=== PATIENT | male | born 1955 | race Caucasian/White ===

== ENCOUNTER 2017-02-04 05:58 | Inpatient (IN) | payer BC ==
--- NOTE | 2017-01-29 20:01 | HP ---
HISTORY OF PRESENT ILLNESS: Mr. Muniz is a 61-year-old male that presents with numbness and reece n in his left greater than right C5 dermatome. He has had this pain since July 2006. He has also noticed that he has been off balance and on exam, he has demonstrated a heel to toe walk, but he is off balance. He has had weakness in the left upper extremity with extension of the wrist and flexio n of the bicep. He has +3 brachial reflexes and tricep reflexes. He has had positive Spurling's to the left. The pain is made worse with rotation and flexion of his neck and made somewhat better wi th lidocaine patches. The pain is also made somewhat better with heat, ice, massage, and TENS unit, but has not give permanent relief. He has not had any physical therapy and had [address] REENA injections wi th Dr. Kaur as well as stem cell injections. MRI and x-rays have been obtained at [facility] in [place]. REVIEW OF SYSTEMS: Ten-point review of systems was completed and it is otherwise negative unless st ated in the above HPI. PAST MEDICAL HISTORY: Hypertension, cardiac stents. PAST SURGICAL HISTORY: Laminectomy L4-L5 in 2015, cardiac catheterization in 2014, cardiac catheter ization in 2011, laminectomy T8 in 2009, right rotator cuff surgery in 2009, laminectomy L5-S1 in 05 01, cardiac ablation in 2007, cardiac catheterization in 2007, laminectomy L3-L4 in 2002 and a right knee surgery in 1995. HOSPITALIZATIONS: Surgeries for infection in 2014. FAMILY HISTORY: Father is , diagnosed with hypertension. Mother is , diagnosed wit h hypertension. Siblings are alive, diagnosed with diabetes. SOCIAL HISTORY: Patient is a nonsmoker, retired psychosocial rehabilitation counselor. He is and has 2 children. MEDICATIONS: 1. Zocor 10 mg tablet, 1 tablet in the evening orally once a day. 2. Pristiq 100 mg tablet extended release 24 hour, 1 tablet orally once a day. 3. Sotalol HCL 80 mg tablet, 1 tablet orally q.12 hours. 4. Baby aspirin. 5. Multivitamin 1 tablet daily. 6. Fentanyl HCL 40 mcg - ACT patch transdermal. 7. Hellier 10/325 mg tablet, 1 tablet as needed orally q.6 hours. 8. Zanaflex 4 mg tablet, 1 tablet as needed orally 3 times a day. ALLERGIES: BYSTOLIC. PHYSICAL EXAMINATION: HEENT: Normocephalic, atraumatic. Hearing intact. Moist mucous membranes. Trachea is midline. N o masses noted. EYES: Pupils are equal and reactive to light. Extraocular muscles are intact. Sclerae is white, n onicteric. PSYCHIATRIC: Normal mood and affect. CARDIOVASCULAR/CARDIOPULMONARY: No cyanosis or clubbing noted. Intact pedal pulses bilaterally. MUSCULOSKELETAL: Upper extremity, 3/5 strength in the left bicep to tricep and wrist extensor. Sarkar ited range of motion of the neck to the left and right. No sensory deficits bilaterally. RESPIRATORY: Even respirations, good effort in all lung liz, sounds clear with no wheezing or cr ackles. NEUROLOGIC: Stable. Cranial nerves II through XII were grossly intact. Speech is fluent. He answ ers my questions appropriately with gait and he is off balance with gait and station. ASSESSMENT: 1. Cervical myelopathy with radiculopathy. 2. Neck pain. PLAN: Dr. Bustamante offered an ACDF from the anterior and posterior C4-C7, anterior ACDF C4 through C7 and posterior laminectomy and fusion C4 through C7. This will prevent his neurologic symptoms i n the upper extremities and lower extremities from getting worse. We reviewed the risks, benefits, and possible complications of surgery. Mr. Muniz fully understands the risk and is willing to p roceed with the surgery.
[2017-02-04] MEDS ORDERED: Bupivacaine HCl 0.5%/Epinephrine 1:200,000/PF 30 ml Vial ONE (06:19)
[2017-02-04] MEDS ORDERED: Bacitracin Zinc Ointment 30 gm TUBE ONE (06:19)
[2017-02-04] MEDS ORDERED: Thrombin 5000 UNITS/5 ML VIAL ONE ×2 (06:19→06:20)
[2017-02-04] MEDS ORDERED: Sodium Chloride 0.9% 20 ML ONE (06:19)
[2017-02-04 06:41] LABS: Hematocrit 39.8 % (42.0-52.0); Mean Platelet Volume 10.4 fL (7.4-10.4); Red Blood Cell (RBC) Count 4.26 mill/uL (4.70-6.10); White Blood Cell (WBC) Count 6.1 thou/uL (4.8-10.8)
[2017-02-04] MEDS ORDERED: Midazolam HCl 2 mg/2 ml Vial ONE ×2 (06:41→06:52)
[2017-02-04] MEDS ORDERED: Fentanyl 100 MCG/2 ML VIAL ONE ×8 (06:42→16:30)
[2017-02-04 06:50] LABS: PTT 25.2 SEC (22.9-36.1); Prothrombin Time 12.6 SEC (12.0-14.7)
[2017-02-04] MEDS ORDERED: Ondansetron HCl/PF 4 MG/2 ML Vial ONE (07:22)
[2017-02-04] MEDS ORDERED: Lidocaine 2% PF 10 ML AMP (For Epidural Use) ONE (07:22)
[2017-02-04] MEDS ORDERED: Vecuronium 10 MG VIAL ONE (07:22)
[2017-02-04] MEDS ORDERED: Propofol 200 MG/20 ML VIAL ONE (07:22)
[2017-02-04] MEDS ORDERED: PHENYLEPHRINE-NS 100 MCG/ML 10 ML SYRINGE ONE (07:22)
[2017-02-04] MEDS ORDERED: Glycopyrrolate 0.2 MG/ML 5 ML SYRINGE ONE (07:22)
[2017-02-04] MEDS ORDERED: Dexamethasone 20 MG/5 ML VIAL ONE (07:22)
[2017-02-04] MEDS ORDERED: Rocuronium Bromide 50 MG/5 ML VIAL ONE ×2 (10:29→13:30)
--- NOTE | 2017-02-04 13:08 | OP ---
DATE OF PROCEDURE: 02/04/2017 SURGEON: Andrew Bustamante M.D. PARTITION SETTER: Ghassan Erazo PA-C PREOPERATIVE INDICATION: Prevent neurological deterioration. 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 OPERATIVE PROCEDURES: Anterior cervical diskectomy, intravertebral arthrodesis, placement of interv ertebral biomechanical device, anterior cervical plating C4-5, C5-6, and C6-7, local morselized auto graft, morselized allograft and operative microscope (separate surgical procedure under same anesthe scottie dictated elsewhere). PREOPERATIVE MEDICATION: Ancef 2 grams IV. DRAIN NUMBER: Zero. DRAIN TYPE: None. OPERATIVE DICTATION: The patient was brought to the operating room. General endotracheal anesthesi a was induced. Keeping the neck in normal anatomic alignment, the patient was positioned supine wit h his head supported by gel-filled donut shaped head rest. A lateral fluoro radiograph was used to plan our incision. The right side of the neck was sterilely prepped and draped. We opened with a 1 0 blade knife and controlled bleeding with bipolar cautery. We dissected sharply to the platysma an d cut this muscle in line with our incision. We continued our dissection medial to the sternocleido mastoid and lateral to the trachea and esophagus all the way down the prevertebral space. We placed a marker at C4-C5 and took a lateral fluoro radiograph to confirm the levels upon which we were ope rating. We then elevated the longus colli muscles off the anterior surface of C4, C5, C6, and C7. We placed a self-retaining retractor beneath the longus colli muscles and distraction pins were plac ed at C5 and C7. We distracted across both of the intervening interspaces. We incised the interspa gerri with a 15 blade knife and removed disk contents using curettes and rongeurs. The operative micr oscope was brought into the field. Under microscopic magnification and using microsurgical techniques, we removed the remainder of the intervertebral disk. We removed the posterior longitudinal ligament. We visualized the dura and we decompressed from one neural foramen all the way to the other across the interspace at C5-6 and aga in at C6-7. We then turned our attention to arthrodesis. We prepared the endplates for grafting using angled curets to remove the cartilaginous cap. We denita ured the height of the both interspaces to 6 mm. Two separate 6 mm PEEK graft were brought into the field. Osteophytes removed during our decompression were carefully cleaned of their soft tissue at tachment morselized and added to demineralized bone matrix as our fusion substrate. The substrate w as placed into the PEEK graft and the PEEK grafts were advanced into their respective interspaces un jaxson radiographic guidance to the appropriate depth. We then removed the distraction pin from C7. W e placed our lateral retractors at C4-5 and placed a distraction pin at C4. We then distracted acro ss the C4-5 interspace. In a similar fashion to what we had done below, we decompressed at C4-5. We incised the interspace with a 15 blade knife and removed disk contents using curettes and rongeur s. We continued on the operating microscope to remove the remainder of the intervertebral disk. We removed the posterior longitudinal ligament and visualize the dura. We decompressed by removing os teophytes and posterior longitudinal ligament across the entire interspace from one nerve root all t he way to the other nerve roots at the C4-C5 interspace. We then prepared the endplates for graftin g and using angled curet and measured the height of the interspace to 7 mm. A 7 mm PEEK graft was b rought into the field and loaded with demineralized bone matrix and morselized autograft and advance d into the interspaces under radiographic guidance to the appropriate depth. We removed both distra ction pins and took operating microscope out of the field. Prepared the anterior surface of the vertebral bodies to accept anterior cervical plate. A 48 mm an terior cervical plate was brought into the field. We drilled airplane pilot photogrammetry holes through the plate into the vertebral bodies from C4-C7. We affixed the plate using 14 mm screws. Fixed angle screws were use d at C7 and variable angle screws at C4, C5, and C6. We engaged the locking mechanism over each of the screws. AP and lateral fluoro radiographs confirmed adequate position of instrumentation. We i rrigated copiously with bacitracin irrigation. Hemostasis was excellent. We closed the wound in an atomic layers and we applied a sterile dressing. This was a clean case and no contamination. The p osterior decompression fusion is dictated under separate heading under the same anesthetic.
[2017-02-04] MEDS ORDERED: Promethazine HCl 25 MG/ML VIAL SLOW IVP PRN (15:16)
[2017-02-04] MEDS ORDERED: HYDROmorphone 2 MG/ML VIAL SLOW IVP PRN (15:16)
[2017-02-04] MEDS ORDERED: Ondansetron HCl/PF 4 MG/2 ML Vial IVP PRN ×2 (15:16→15:31)
[2017-02-04] MEDS ORDERED: Meperidine HCl/PF 25 MG/ML VIAL SLOW IVP PRN (15:16)
[2017-02-04] MEDS ORDERED: Acetaminophen/Codeine 30-300mg Tablet PO PRN ×2 (15:31)
[2017-02-04] MEDS ORDERED: Morphine Sulfate 2 MG/ML SYRINGE SLOW IVP PRN (15:31)
[2017-02-04] MEDS ORDERED: Milk Of Magnesia 30 ML UDCUP PO PRN (15:31)
[2017-02-04] MEDS: Sodium Chloride 0.9% 1,000 ML IV SCH (15:45)
--- NOTE | 2017-02-04 19:01 | OP ---
DATE OF PROCEDURE: 02/04/2017 SURGEON: Andrew Bustamante M.D. DISPENSER OPERATOR: Ghassan Erazo PA-C. PREOPERATIVE INDICATION: Prevent neurological deterioration. 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 OPERATIVE PROCEDURE: Decompressive laminectomy; foraminotomy at C4, C5, C6, and C7; posterolateral arthrodesis C4-5, C5-6, and C6-7; posterior cervical instrumentation C4-C7; local morselized autogra ft, morselized allograft (second surgical procedure under same anesthetic as part one elsewhere). PREOPERATIVE MEDICATION: Ancef 2 grams IV. DRAIN NUMBER: One. DRAIN TYPE: 10-[place]. OPERATIVE DICTATION: The patient was under general anesthesia from his first surgical procedure. M [employer] paco headholder was placed in the patient's head and he was rolled carefully down the seco nd operative table with his chest and hips supported by gel-filled chest rolls. The head was immobi lized with the Spencer attachments. Hair was removed from the back of the head and neck. A latera l fluoro radiograph was used to plan our incision. The posterior cervical skin was sterilely preppe d and draped. We opened our midline incision with a 10-blade knife and controlled bleeding with bip olar cautery. We used monopolar cautery to dissect through the ligamentum nuchae. We stayed in the midline and dissected all the way down to the spinous processes from C4-C7. A lateral fluoro radio graph confirmed the levels upon which we were operating. We then elevated the paraspinal muscles of f the spinous process and lamina of C4, C5, C6, and C7. Self-retaining retractors were placed. We then used a Steely and Kerrison rongeurs to fashion a laminectomy from the bottom of C6 to the top o f C4. We then changed direction and removed the superior 10 mm of the lamina C7 as well. We widene d our laminectomy defect until we were around the lateral aspect of the thecal sac bilaterally. We identified the foramina and performed small foraminotomies to ensure the exiting nerve roots were we ll decompressed. We then turned our attention to arthrodesis. Using bony anatomic landmarks and a lateral fluoro radiograph as a guide, we chose entry points for lateral mass screws. With the high-speed jose angel, we decorticated bone to start our entry points. We then used a 12 mm drill and drilled out screw trajectories. These were completely encased in bone. We placed 12 mm lateral mass screws at C4, C5, C6, and C7 bilaterally. We brought a margoth template i nto the screw heads and measured rods for both sides. We cut these rods and bent them to fit her sc rew heads. We tightened caps over the rods and using a easbwl-vltoloo-gssxwf mechanism, we ensured adequate tightness. We irrigated copiously with bacitracin irrigation. We then brought a high-spee d drill into the field and decorticated the lateral aspect of each of the lateral masses from C4-C7 and over the decorticated bone, we left demineralized bone matrix and morselized autograft as our po sterolateral fusion substrate. The morselized autograft was obtained from the laminectomy bone, [facility] ch was carefully cleaned of all soft tissue and then morselized into demineralized bone matrix to fo rm our fusion substrate. We tunneled the drain inferiorly through a separate stab incision. We inf used some local anesthetic in the paraspinal muscles. We added vancomycin powder in the wound. We closed the wound in anatomic layers over a drain. This was a clean case and no contamination.
[2017-02-04 20:09] VITALS: BMI 27.3
[2017-02-04] MEDS: Sotalol HCl 80 MG TAB PO SCH (21:01)
[2017-02-04] MEDS: Simvastatin 5 MG TAB PO SCH (21:01)
[2017-02-04] MEDS: Cyclobenzaprine 10 MG TAB PO PRN (23:18)
[2017-02-05] MEDS: HYDROcodone/Acetaminophen 10/325 mg Tablet PO PRN ×3 (00:22→10:53)
[2017-02-05] MEDS: Sodium Chloride 0.9% 1,000 ML IV SCH ×2 (05:08→19:43)
[2017-02-05] MEDS: Cyclobenzaprine 10 MG TAB PO PRN ×3 (05:11→19:20)
--- NOTE | 2017-02-05 07:44 | PRG ---
DATE OF SERVICE: 02/05/2017 Mr. Muniz is 1 day out from an anterior and posterior decompression and fusion of the cervical s pine for unstable spondylolisthesis, cord compression myelopathy. He complains of some tightness in his neck overnight, but no radiating pains in his arms. His hands subjectively feel better than th nicholas did before surgery. I do not see any fevers recorded overnight and his vital signs look stable to me. His neurological function this morning is stable from preoperative function and the drain has put out about 50 mL. My plan for today is to mobilize Mr. Muniz. Once he is safe with activities of daily living he can be discharged. If he needs extra help with physical therapy then a brief stay in inpatient reha bilitation may be worthwhile. The drain can come out when it is averaging less than 5 mL an hour.
--- NOTE | 2017-02-05 07:55 | PRG ---
DATE OF SERVICE: 02/05/2017 Mr. Muniz is a 61-year-old male who I saw in his room this morning. He is status post an anteri or cervical and posterior cervical fusion C4 through C7. This morning, he does not have any pain in his upper extremities; however, he does complain of some muscle spasms in his upper back. Today he can work with physical therapy and ambulate as much as possible. The LEONIDES drain overnight put out 50 mL so that can be discontinued. If he is able to do everything that he would do at home here at [facility], he can be discharged either later today, but most likely tomorrow. If there are any further questions, please feel free to contact Neurosurgery.
[2017-02-05] MEDS: Valsartan 80 MG TAB PO SCH (08:20)
[2017-02-05] MEDS: Sotalol HCl 80 MG TAB PO SCH ×2 (08:20→20:39)
[2017-02-05] MEDS ORDERED: HYDROcodone/Acetaminophen 10/325 mg Tablet PO PRN ×2 (13:47)
[2017-02-05] MEDS ORDERED: Promethazine HCl 25 MG/ML VIAL IM PRN (17:37)
[2017-02-05] MEDS ORDERED: diphenhydrAMINE HCl 25 MG CAP PO PRN (17:37)
[2017-02-05] MEDS ORDERED: Ondansetron HCl/PF 4 MG/2 ML Vial IVP PRN (17:37)
[2017-02-05] MEDS ORDERED: Naloxone HCl 0.4 mg/ml Vial IV PRN (17:37)
[2017-02-05] MEDS ORDERED: diphenhydrAMINE HCl 50 MG/ML 1 ML VIAL IVP PRN (17:37)
[2017-02-05] MEDS ORDERED: Fentanyl 5000 MCG/250 ML CADD IVPB PRN (17:37)
[2017-02-05] MEDS ORDERED: diphenhydrAMINE HCl 50 MG/ML 1 ML VIAL IM PRN (17:37)
[2017-02-05] MEDS ORDERED: Communication Order-Pharmacy FS SCH (17:45)
[2017-02-05] MEDS: Simvastatin 5 MG TAB PO SCH (20:39)
[2017-02-06] MEDS: Cyclobenzaprine 10 MG TAB PO PRN ×3 (02:09→21:29)
[2017-02-06] MEDS: Zolpidem Tartrate 5 MG TAB PO PRN (02:09)
--- NOTE | 2017-02-06 06:56 | PRG ---
DATE OF SERVICE: 02/06/2017 Mr. Daniel Muniz is 2 days out from an anterior posterior decompression and fusion of the cervical spine. He does not notice any change in his hands. He has good motor function. He has not checke d his finger dexterity that was a problem before surgery. He was able to walk yesterday, he felt th at his balance was normal. He went to the bathroom and he had no urinary retention. On examination, Mr. Muniz still has a dressing on his posterior cervical incision, it seems to b e healing well. I do not find any new neurological deficits. Mr. Muniz has issues with pain control that need to be addressed before discharge. I would like to get him into a state of pain control that is more tenable as he is not apt to participate in the rapy if he is hurting this much. None of the pain is radicular, it is all muscular in the posterior cervical area and will take some time to rian, it seems.
[2017-02-06] MEDS: Sodium Chloride 0.9% 1,000 ML IV SCH ×2 (07:59→21:29)
[2017-02-06] MEDS: Valsartan 80 MG TAB PO SCH (08:33)
[2017-02-06] MEDS: Sotalol HCl 80 MG TAB PO SCH ×2 (08:33→21:28)
[2017-02-06] MEDS ORDERED: HYDROmorphone 10 mg/100 ml CADD IV PRN (12:12)
[2017-02-06] MEDS: HYDROmorphone 10 mg/100 ml CADD IV PRN (13:34)
[2017-02-06] MEDS ORDERED: Gabapentin 300 MG CAP PO SCH (15:00)
[2017-02-06] MEDS: DESVENLAFAXINE 100 MG PO SCH (15:09)
[2017-02-06] MEDS: Gabapentin 300 MG CAP PO SCH ×2 (15:36→21:28)
[2017-02-06] MEDS: Simvastatin 5 MG TAB PO SCH (21:28)
[2017-02-07] MEDS: Zolpidem Tartrate 5 MG TAB PO PRN ×2 (03:09→20:36)
[2017-02-07] MEDS: HYDROmorphone 10 mg/100 ml CADD IV PRN ×2 (04:39→23:35)
--- NOTE | 2017-02-07 07:10 | PRG ---
DATE OF SERVICE: 02/07/2017 Mr. Muniz is 3 days from anterior to posterior cervical decompression with fusion. He has had p ain control issues. Because of pain control issues he has been out of bed only twice yesterday and walking in the halls. He has been in and out of the bathroom, however. I do not find any new neuro logical deficit. He is quite concerned about his pain. My plan for Mr. Muniz is to start to transition to medications for pain control that we could us e at home, continue therapy and wait for him to be safe for activities of daily living before discha rge. He will need to be getting in and out of bed on his own.
--- NOTE | 2017-02-07 07:23 | PRG ---
DATE OF SERVICE: 02/07/2017 Mr. Muniz is 3 days out from an anterior cervical diskectomy and fusion of the cervical spine an d posterior fusion. This morning he has good strength in his upper and lower extremities bilaterall y. He has been having issues with pain control over the last 2 days and Anesthesia has been involve d with that. His vital signs overnight have been stable. Yesterday, he was able to ambulate with p hysical therapy approximately 80 feet. This morning he is tired, but responsive to my questions and responds appropriately. His pulses are equal and symmetric in the upper and lower extremities bila terally. There are no new neurologic deficits on exam and he has no radicular pain. Most of the pa in that he is experiencing is in the upper back and posterior neck which will take some time to reso lve. We want to make sure that his pain can be handled with oral pain medication before he is disch arged from the hospital. If you have any further questions, please feel free to contact Neurosurgery.
[2017-02-07] MEDS: Valsartan 80 MG TAB PO SCH (10:03)
[2017-02-07] MEDS: DESVENLAFAXINE 100 MG PO SCH (10:03)
[2017-02-07] MEDS: Sotalol HCl 80 MG TAB PO SCH ×2 (10:03→20:35)
[2017-02-07] MEDS: Gabapentin 300 MG CAP PO SCH ×3 (10:04→20:35)
[2017-02-07] MEDS: Sodium Chloride 0.9% 1,000 ML IV SCH ×2 (11:33→19:40)
[2017-02-07] MEDS: Cyclobenzaprine 10 MG TAB PO PRN ×2 (16:08→23:41)
[2017-02-07] MEDS: Simvastatin 5 MG TAB PO SCH (20:35)
[2017-02-08] MEDS: Gabapentin 300 MG CAP PO SCH ×3 (08:22→21:35)
[2017-02-08] MEDS: DESVENLAFAXINE 100 MG PO SCH (08:22)
[2017-02-08] MEDS: Sotalol HCl 80 MG TAB PO SCH ×2 (08:23→21:35)
[2017-02-08] MEDS: Valsartan 80 MG TAB PO SCH (08:24)
--- NOTE | 2017-02-08 12:40 | PRG ---
DATE OF SERVICE: 02/08/2017 Mr. Muniz is 4 days out from anterior-posterior decompression and fusion of the cervical spine f or a cervical spondylitic myelopathy. Mr. Muniz is still complaining of significant muscle spas m. The location of the spasm is very specific between the top of the right scapula and the spine. He feels if somebody could press there or use manual maneuvers to loosen the muscle, he could feel s ignificantly better. He is still on the AUTOMOTIVE GENERAL SALES MANAGER and fentanyl. He came in on the fentanyl patch. Mr. Muniz's neurological function is normal. My plan today is to check over his muscle spasm medication and switch it to a different medicine as it is not working terribly well. I will ask physical therapy to use manual maneuvers to help loosen his musculature and see if we can get him out of the hospital at some point this weekend.
--- NOTE | 2017-02-08 13:28 | PRG ---
DATE OF SERVICE: 02/08/2017 Mr. Flavio morrison is status post from an anterior cervical diskectomy and fusion and posterior carr inectomy and fusion. He seems to be doing better overnight. This morning, he complains of severe m uscle spasms, mainly on the right side of his neck. He is currently taking Flexeril for muscle rela xant and we can switch to tizanidine as that is what he has previously taken. His vital signs have been stable overnight and there have been no acute events. His neurologic status has been unchanged . His incisions are clean, dry, and intact, well approximated with opal on the posterior cervica l spine and anterior incision on the right side of his neck has no erythema and is well-approximated and is closed with subcu stitches. We can start to wash the incisions with soap and water or Hibic lens daily. He can work with physical therapy today and we can continue pain management. If possib le, we would like to start weaning off the SIGHTER pump to oral medications so that we can look to disch arge in the near future. If there are any further questions, please feel free to contact Neurosurge edinson.
[2017-02-08] MEDS: Sodium Chloride 0.9% 1,000 ML IV SCH (14:41)
[2017-02-08] MEDS: tiZANidine HCl 4 MG TAB PO SCH ×2 (15:01→21:35)
[2017-02-08] MEDS: Simvastatin 5 MG TAB PO SCH (21:34)
[2017-02-09] MEDS: HYDROmorphone 10 mg/100 ml CADD IV PRN (04:33)
[2017-02-09] MEDS: Sodium Chloride 0.9% 1,000 ML IV SCH ×2 (05:14→15:08)
[2017-02-09] MEDS: Gabapentin 300 MG CAP PO SCH ×3 (09:09→21:10)
[2017-02-09] MEDS: Sotalol HCl 80 MG TAB PO SCH ×2 (09:10→21:10)
[2017-02-09] MEDS: DESVENLAFAXINE 100 MG PO SCH (09:10)
[2017-02-09] MEDS: tiZANidine HCl 4 MG TAB PO SCH ×3 (09:10→21:11)
[2017-02-09] MEDS: Valsartan 80 MG TAB PO SCH (09:10)
--- NOTE | 2017-02-09 09:23 | PRG ---
DATE OF SERVICE: 02/09/2017 NEUROSURGERY PROGRESS NOTE SUBJECTIVE: Mr. Muniz got some manual massage of the trapezius/rhomboid on the right side. He said this helped significantly, but was too short and temporary. Pain returned and he has not been out of bed yesterday. In fact, it has been a few days. He tells me he is rolling from side to side and doing leg exercises, but I prefer him to be up and walking. I have encouraged Mr. Muniz to move around more today and hopefully transition from IV analgesics to p.o. I have to start making progress to these.
--- NOTE | 2017-02-09 11:03 | PRG ---
DATE OF SERVICE: 02/09/2017 SUBJECTIVE: Mr. Muniz is a 61-year-old male, I saw in his room this morning. He says he is fee ling much better; however, he is still having the muscle cramps in the right-sided neck. He said th e physical therapy was in yesterday to work with him and gave him a short massage in the shoulders w hich seemed to help significantly. However, they were concerned about him ambulating. He did not t hink that this was the main issue and that he would like his benefit from his back being out with mo re beneficial from physical therapy. Yesterday, he was able to stand up and walk. His vital signs have been stable overnight. There are no new neurologic deficits on exam. He can continue to work with physical therapy today. I encouraged physical therapy to massage his right-sided upper cervica l spine. If there are any further questions, please feel free to contact Neurosurgery.
[2017-02-09] MEDS: Simvastatin 5 MG TAB PO SCH (21:10)
[2017-02-10] MEDS: Sodium Chloride 0.9% 1,000 ML IV SCH (06:29)
[2017-02-10 08:13] VITALS: TEMP 98.2
[2017-02-10] MEDS ORDERED: oxyCODONE/Acetaminophen 5 mg/325 mg Tablet PO PRN (08:16)
--- NOTE | 2017-02-10 08:36 | PRG ---
DATE OF SRVICE: 02/10/2017 SUBJECTIVE: Mr. Muniz is 6 days out from an anterior to posterior decompression and fusion of t he cervical spine for unstable spondylolisthesis and cervical spondylitic myelopathy. Mr. Muniz had difficulty with pain control during his hospitalization, but since yesterday when he got a therapeutic massage of the rhomboids and trapezius, he is much better. He has required muc h less pain medication, he has not use his DESIGN PRINTER BALLOON since 3:00 p.m. yesterday and he has been off pain me dicines. He is ready to go home. We will make arrangements for him to be seen with his pain management doctor in [place]. We will offer him muscle relaxants and analgesic prescriptions for discharge and he wants to go home today. We will make that happen.
[2017-02-10] MEDS: Valsartan 80 MG TAB PO SCH (09:31)
[2017-02-10] MEDS: tiZANidine HCl 4 MG TAB PO SCH (09:32)
[2017-02-10] MEDS: Sotalol HCl 80 MG TAB PO SCH (09:32)
[2017-02-10] MEDS: Gabapentin 300 MG CAP PO SCH (09:32)
[2017-02-10] MEDS: DESVENLAFAXINE 100 MG PO SCH (09:36)
[2017-02-10 21:06] VITALS: BP 96/58
--- NOTE | 2017-02-12 09:01 | DIS ---
DATE OF ADMISSION: 02/04/2017 DATE OF DISCHARGE: 02/10/2017 Mr. Muniz is a 61-year-old male. 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 DISCHARGE CONDITION: The patient is stable. He is ambulating. He has good strength in all extremi ties. CONSULTATIONS: Physical therapy, [facility]. PROCEDURES: 1. Anterior cervical diskectomy and intervertebral arthrodesis placement of intervertebral biomecha nical device, anterior cervical plating at C4-C5, C5-C6, and C6-C7. 2. Localized morselized autograft, morselized allograft, and operative microscope separate surgical procedure under same anesthesia dicated elsewhere. 3. Decompressive laminectomy, foraminotomy at C4-C5-C6-C7, posterolateral arthrodesis at C4 through C7, posterior cervical instrumentation at C4 through C7, local morselized autograft, morselized all ograft, second surgical procedure under same anesthestic as part one elsewhere. HISTORY OF PRESENT ILLNESS: Mr. Muniz is a 61-year-old male who presents with numbness and pain in his left greater than right C5 dermatome. He has had pain since 07/2016. He has also noticed t hat he has been off balance on exam, demonstrated a heel to toe walk. He had weakness in the left u pper extremity in the left triceps and biceps. He had positive Spurling's to the left and the pain is made worse with rotation and flexion of the neck made somewhat better with lidocaine patches. He has had several REENA injections with Dr. Kaur and stem cell injections, and this does not give p ermanent relief and he has opting for a surgery for help his pain. HOSPITAL COURSE: Mr. Muniz had no acute events. He had trouble controlling his pain in the fir st 2 days out of surgery, so [facility] was consulted and a LAUNDRY AID pump was placed which h elped to control his pain. He is able to get up and ambulate with physical therapy. Two days where he had cramping in the uppe r right trapezius muscle in which physical therapy massaged his trapezius muscles and the cramping w ent away. All images were taken intraoperatively. DISCHARGE PHYSICAL EXAMINATION: HEENT: Normocephalic, atraumatic. Hearing intact. Moist mucous membranes. Trachea is midline. E yes: Pupils are equal and reactive to light. Extraocular muscles are intact. Sclerae are white, n onicteric. NECK: The patient has incisions on the anterior right cervical spine and posterior midline cervical spine. Both incisions are nonerythematous, clean, dry and intact. RESPIRATORY: The patient has bilateral symmetric chest rise, appears to be no shortness breath. CARDIOVASCULAR: The patient has regular rate and rhythm, normal S1, S2 heart sounds. Appears to rhodes ve no distal cyanosis or clubbing. MUSCULOSKELETAL: The patient has 4/5 strength in bilateral upper extremities, 5/5 strength in bilat eral lower extremities in all muscle groups. Pulses are +2 and equal and symmetric in the brachial and radial pulses in the upper extremities bilaterally and posterior tibial pulses in the lower extr emities bilaterally. NEUROLOGIC: Cranial nerves II through XII are grossly intact. Speech is fluent. He answers questi ons appropriately. Patient's weight is 170 pounds. He is 5 feet, 6 inches. ACTIVITY ON DISCHARGE: The patient can have regular activity with restrictions of lifting more than 15 pounds. The patient is to wear a cervical C-spine brace for 4 to 8 weeks. DIET: The patient can have a regular diet on discharge. MEDICATIONS: Home medications include: 1. Fentanyl patch 1 on dermis. 2. Tizanidine 4 mg p.o. t.i.d. 3. Sotalol/HCL 80 mg p.o. b.i.d. 4. [place] 10/325 tablet 1 each p.o. p.r.n. 5. Simvastatin 10 mg p.o. at bedtime. 6. Khedezla 100 mg p.o. daily. 7. Amlodipine/valsartan 1 tablet p.o. daily
== END 2017-02-10 12:09 | disposition home or self-care (01) | DRG 454 ==
LOC: SURG A 05:58 → SURG B 17:18 → UNDODISIN 02-10 11:00
PROVIDERS: ADMIT Neurological Surgery; ATTEND Neurological Surgery
PROC: 0RG2071 Fusion of 2 or more Cervical Vertebral Joints with Autologous Tissue Substitute, Posterior Approach, Posterior Column, Open Approach (ICD-10-PCS; principal; 2017-02-04)
PROC: 0RG20A0 Fusion of 2 or more Cervical Vertebral Joints with Interbody Fusion Device, Anterior Approach, Anterior Column, Open Approach (ICD-10-PCS; 2017-02-04)
PROC: 01N10ZZ Release Cervical Nerve, Open Approach (ICD-10-PCS; 2017-02-04)
PROC: 0RB30ZZ Excision of Cervical Vertebral Disc, Open Approach (ICD-10-PCS; 2017-02-04)
DX: M47.12 Other spondylosis with myelopathy, cervical region (principal); G95.20 Unspecified cord compression; I10 Essential (primary) hypertension; M47.22 Other spondylosis with radiculopathy, cervical region; M43.12 Spondylolisthesis, cervical region; M48.02 Spinal stenosis, cervical region
CPT/HCPCS: 76001; 85027; 85610; 85730; 93005; 93010; A4216; C1713; C1768; G8978-GP-CL; G8979-GP-CJ; J0670; J1100; J1170; J2001; J2250; J2270; J2405; J2704; J3010; J3370; J3490